=== PATIENT | female | born 1965 | race Caucasian/White ===

== ENCOUNTER → 2016-11-28 | Outpatient (CLI) | payer BC ==
--- NOTE | 2016-11-29 07:50 | MM ---
Reason for exam: history of breast cancer, conservation therapy. Last mammogram was performed 1 year ago. History: Patient is postmenopausal, has history of high-risk lesion on a previous biopsy at age 50, history of breast cancer, history of endometrial cancer, and history of colon cancer. Family history of breast cancer in paternal grandmother at age 65 and breast cancer in maternal grandmother at age 65. High risk MG pre op needle loc RT of the right breast, December 28, 2015. High risk MG stereo VAD BX RT of the right breast, December 07, 2015. Benign US left guided mammotome of the left breast, September 13, 2005. Took hormonal contraceptives for 8 years 2 months beginning at age 28. Physical Findings: Nurse Summary: 1 x 1cm nodule in the right breast along scar at 9 o'clock (nurse ts). MG 3D Diag Mammo W/Cad MARÍA ELENA Bilateral CC and MLO view(s) were taken. Prior study comparison: November 20, 2015, bilateral MG 3d screening mammo w/cad. October 20, 2014, bilateral MG screening mammo w CAD. The breast tissue is heterogeneously dense. This may lower the sensitivity of mammography. No suspicious calcifications are seen. Post operative scarring bilaterally. These results were verbally communicated with the patient and result sheet given to the patient on 11/28/16. ASSESSMENT: Incomplete: need additional imaging evaluation, BI-RAD 0 RECOMMENDATION: Ultrasound of the right breast.
--- NOTE | 2016-11-29 07:53 | USB ---
Reason for exam: additional evaluation requested from abnormal screening. History: Patient is postmenopausal, has history of high-risk lesion on a previous biopsy at age 50, history of breast cancer, history of endometrial cancer, and history of colon cancer. Family history of breast cancer in paternal grandmother at age 65 and breast cancer in maternal grandmother at age 65. High risk MG pre op needle loc RT of the right breast, December 28, 2015. High risk MG stereo VAD BX RT of the right breast, December 07, 2015. Benign US left guided mammotome of the left breast, September 13, 2005. Took hormonal contraceptives for 8 years 2 months beginning at age 28. US Breast Limited RT Right breast ultrasound demonstrates a 0.6 x 0.7 x 0.5cm oval, cystic lesion at 12 o'clock and a 0.9 x 0.8 x 0.6cm oval, mixed lesion at the axilla, probable sebaceous cyst. These results were verbally communicated with the patient and result sheet given to the patient on 11/28/16. ASSESSMENT: Probably benign, BI-RAD 3 RECOMMENDATION: Ultrasound of the right breast in 6 months. Manage patient on a clinical basis.
== END ==
LOC: RADMAMWWP 14:01
PROVIDERS: ATTEND Family Medicine
DX: R92.8 Other abnormal and inconclusive findings on diagnostic imaging of breast (principal); N63 Unspecified lump in breast
CPT/HCPCS: 76642; G0204; G0279

== ENCOUNTER → 2017-01-17 | Outpatient (CLI) | payer BC ==
--- NOTE | 2017-01-17 14:42 | XR ---
EXAMINATION TYPE: XR cervical spine comp DATE OF EXAM: 01/17/2017 2:38 PM COMPARISON: NONE HISTORY: Neck pain TECHNIQUE: Four views are submitted. FINDINGS: The odontoid is intact. There are no compression deformities. The prevertebral soft tissue structur es are within normal limits. Minimal anterolisthesis C4 on C5 with mild degenerative disc disease C5 -C6. IMPRESSION: 1. Mild degenerative disc disease C5-C6..
--- NOTE | 2017-01-17 14:43 | XR ---
EXAM TYPE: LUMBAR SPINE X RAY SERIES COMPARISON: NONE HISTORY: Pain TECHNIQUE: Three views are submitted. FINDINGS: Alignment is anatomic. The pedicles are intact. The transverse processes are intact. There is no s pondylolysis or spondylolisthesis. Severe degenerative disc disease with facet arthropathy L5-S1. IMPRESSION: 1. Severe degenerative disc disease L5-S1 with facet arthropathy.
== END | disposition home or self-care (01) ==
LOC: RADXRMAIN 14:09
PROVIDERS: ATTEND Emergency Medicine
DX: M50.322 Other cervical disc degeneration at C5-C6 level (principal); M51.37 Other intervertebral disc degeneration, lumbosacral region; M12.88 Other specific arthropathies, not elsewhere classified, other specified site
CPT/HCPCS: 72050; 72100

== ENCOUNTER → 2017-09-26 | Outpatient (CLI) | payer BC ==
--- NOTE | 2017-09-27 07:38 | MM ---
Reason for exam: additional evaluation requested from prior study. Last mammogram was performed 10 months ago. History: Patient is postmenopausal and has history of high-risk lesion on a previous biopsy at age 50. Family history of breast cancer in paternal grandmother at age 65 and breast cancer in maternal grandmother at age 65. High risk MG pre op needle loc RT of the right breast, December 28, 2015. High risk MG stereo VAD BX RT of the right breast, December 07, 2015. Benign US left guided mammotome of the left breast, September 13, 2005. Took hormonal contraceptives for 8 years 2 months beginning at age 28. Physical Findings: Nurse Summary: There is a 0.5 cm nodule in the left breast at 5 o'clock and a 2cm nodule in the left breast at 2 o'clock (nurse dw). MG Diagnostic Mammo LT w CAD CC and MLO view(s) were taken of the left breast. Prior study comparison: November 28, 2016, bilateral MG 3d diag mammo w/cad MARÍA ELENA. November 28, 2016, right breast US breast limited RT. December 02, 2015, right breast US breast workup limited RT. There are scattered fibroglandular densities. There is a marked architectural distortion in the upper outer quadrant of the left breast at the site of prior biopsy at middle depth in association with a focal asymmetry. Although this is stable in comparison to priors, this corresponds to an irregular mass on ultrasound. Precautionary biopsy is recommended. These results were verbally communicated with the patient and result sheet given to the patient on 09/26/17. ASSESSMENT: Suspicious, BI-RAD 4 RECOMMENDATION: Ultrasound core biopsy of the left breast. (Patient will be due for right mammogram November 2017). Called Dr. Parks with mammographic findings and has scheduled an appointment for the patient for 10/05/17 at 1:[address] Nascimento. PRELIMINARY REPORT CALLED AND FAXED TO DR. NASCIMENTO ON 09/26/17.
--- NOTE | 2017-09-27 07:47 | USB ---
Reason for exam: follow-up at short interval from prior study. History: Patient is postmenopausal and has history of high-risk lesion on a previous biopsy at age 50. Family history of breast cancer in paternal grandmother at age 65 and breast cancer in maternal grandmother at age 65. High risk MG pre op needle loc RT of the right breast, December 28, 2015. High risk MG stereo VAD BX RT of the right breast, December 07, 2015. Benign US left guided mammotome of the left breast, September 13, 2005. Took hormonal contraceptives for 8 years 2 months beginning at age 28. US Breast BILAT Right breast ultrasound includes all four quadrants, the retroareolar region and axilla. Finding demonstrates a 0.6 x 0.5 x 0.8cm oval, cystic lesion at 1 o'clock, benign. Left breast ultrasound includes all four quadrants, the retroareolar region and axilla. Finding demonstrates a 0.9 x 0.7 x 1.1 cm irregular, spiculated, solid, hypoechoic lesion at 1 o'clock, at the site of palpable abnormality, although this appears mammographically stable there is significant distortion on mammogram and a hypoechoic shadowing irregular mass on ultrasound, for which a biopsy is recommended. These results were verbally communicated with the patient and result sheet given to the patient on 09/26/17. ASSESSMENT: Suspicious, BI-RAD 4 RECOMMENDATION: Ultrasound core biopsy of the left breast. (at 2 o[address]). [address] Parks with mammographic findings and has scheduled an appointment for the patient for 10/05/17 at 1:[address] Nascimento. PRELIMINARY REPORT CALLED AND FAXED TO DR. NASCIMENTO ON 09/26/17.
== END | disposition home or self-care (01) ==
LOC: RADMAMWWP 14:06
PROVIDERS: ATTEND Family Medicine
DX: N64.4 Mastodynia (principal); N63.10 Unspecified lump in the right breast, unspecified quadrant
CPT/HCPCS: 77065

== ENCOUNTER → 2017-10-12 | Day surgery (SDC) | payer BC ==
[2017-10-12 12:20] VITALS: RESP 16; BMI 31.4
[2017-10-12 13:57] VITALS: BP 124/81; PULSE 72; TEMP 97.7
--- NOTE | 2017-10-12 14:19 | USB ---
EXAMINATION TYPE: US biopsy breast VAD LT, MG diagnostic mammo LT wo CAD DATE OF EXAM: 10/12/2017 CLINICAL HISTORY: 52-year-old female R92.8 ABN MAMMO. TECHNIQUE: Ultrasound guided core biopsy of the 1:00 left breast. COMPARISON: 09/26/2017 FINDINGS: The procedure of ultrasound guided core biopsy was explained to the patient. Benefits, alternatives, and risks were discussed. An informed consent was then obtained. The patient was placed in supine positioning for imaging and for the procedure. The overlying skin was prepped and draped in usual sterile fashion. Lidocaine buffered with bicarbonate was used as anesthetic into the skin and subcutaneous tissue up to area of concern in the 1:00 left breast. Under ultrasound guidance, a 13-gauge vacuum-assisted mammotome Elite biopsy gun device was used to obtain 6 core samples. Following this, a coil clip was left in lesion. The patient tolerated the procedure well without any immediate complication. The patient was kept in the radiology department for short stay after the procedure and then discharged home in stable condition. Postprocedure mammogram shows coil clip in place at the area of spiculation adjacent to the prior microclip. IMPRESSION: Successful, uncomplicated ultrasound guided core biopsy of area of concern in the left breast. The etiology is unclear at this time; despite suspicious features on both mammogram and ultrasound, this seems to have remained relatively stable mammographically with a prior clip in this location. Full pathology results to follow. Pathology Results: High Risk BREAST, LEFT, ULTRASOUND GUIDED CORE BIOPSY: SCLEROSING INTRADUCTAL PAPILLOMA. Recommendation Surgical consult of the left breast. LIZBETH
== END ==
LOC: RADUSWWP 11:49
PROVIDERS: ATTEND Surgery
DX: D24.2 Benign neoplasm of left breast (principal)
CPT/HCPCS: 88305; 88342; 88341; 77065; 19083; A4648; J2001

== ENCOUNTER 2017-12-14 06:43 | Day surgery (SDC) | payer BC ==
[2017-12-11 14:35] VITALS: BMI 31.1
[~2017-12-14 06:43] MED LIST: ALPRAZolam 0.5 MG TAB PO PRN; DEXAMETHASONE SOD PHOSPHATE 10 MG/ML 1 ML VIAL IV ONE; LACTATED RINGERS 1,000 ML IV SCH; LIDOCAINE 1% 20 ML VIAL (10MG/ML) FOR IV START INTRADERMA PRN; ONDANSETRON 4 MG/2 ML VIAL IVP ONE; Pre Op ABX Message 1 EACH MISC MISCELLANE ONE; SCOPOLAMINE 1.5MG/72HR PATCH TRANSDERM ONE; fentaNYL (PF) 50 MCG/ML 2 ML AMP IV PRN
[2017-12-14] MEDS ORDERED: SODIUM BICARB 4% 5 ML VIAL (0.48 MEQ/ML) MISCELLANE ONE (08:37)
[2017-12-14] MEDS ORDERED: LIDOCAINE 1% INJ 10MG/ML (20 ML MDV) SQ ONE (08:37)
[2017-12-14] MEDS ORDERED: BUPIVACAINE (PF) 0.25% 30 ML VIAL SQ ONE ×2 (09:53)
[2017-12-14] MEDS ORDERED: PROPOFOL 10 MG/ML 20 ML VIAL IV ONE (10:07)
[2017-12-14] MEDS ORDERED: fentaNYL (PF) 50 MCG/ML 2 ML AMP ONE (10:07)
[2017-12-14] MEDS ORDERED: MIDAZOLAM 2 MG/2 ML VIAL ONE (10:07)
[2017-12-14] MEDS ORDERED: LIDOCAINE 1% INJ 10MG/ML (20 ML MDV) ONE (10:07)
[2017-12-14] MEDS ORDERED: LACTATED RINGERS 1,000 ML IV ONE (11:08)
--- NOTE | 2017-12-14 11:26 | P.OP ---
Date of Procedure: 12/14/17 Preoperative Diagnosis: Intraductal papilloma left breast upper outer quadrant Lipoma left lateral chest wall Postoperative Diagnosis: Intraductal papilloma of the upper outer quadrant of the left breast and lipoma 4.5 cm of the left lateral chest wall Procedure(s) Performed: Left breast biopsy with needle localization and excision of lipoma left lateral chest wall Anesthesia: anibal NGUYEN Surgeon: Gary Nascimento Estimated Blood Loss (ml): 20 Pathology: other (Left breast biopsy and lipoma of the left lateral chest wall) Condition: stable Disposition: same day Indications for Procedure: The patient is a 52-year-old white female who had a core biopsy of the left breast mammographic abnormality. The path report revealed this to be intraductal papilloma. Wide excision of this was recommended with needle localization and also excision of a symptomatic lipoma on the left lateral chest wall about 4.5-5 cm in diameter. Informed consent was obtained procedure is having been explained to her including potential complication particular bleeding infection hematoma seroma surrounding the fascia understood and agree to proceed. Operative Findings: Intraductal papilloma the left breast and lipoma of the left lateral chest wall Description of Procedure: With the patient supine under general anesthesia with LMA the left breast and chest wall were prepped with Betadine and draped per. Marcaine 0.5% plain was infiltrated into the skin and surrounding tissues at the wire insertion site in the upper outer quadrant and deepened through the subcutaneous tissues. The excess to the breast tissue around the wire was accomplished. Specimen mammography confirmed a clip and abnormality within the specimen. The wound was thoroughly irrigated. Hemostasis was good and the field was dry. Closure was achieved with interrupted 4-0 Vicryl for the subcutaneous tissues and 4-0 Monocryl subcuticular sutures and Steri-Strips for the skin pressure dressing was applied. Attention was then turned to the lipoma with the area was reprepped and draped. Local anesthetic was infiltrated into the overlying skin and subcutaneous tissue. A transverse incision was then made. The lipoma was located just beneath the subcutaneous tissues and was excised completely intact with good hemostasis. The wound was irrigated. Closure was achieved with interrupted 4- 0 Vicryl for the subcutaneous tissues and 4-0 Monocryl subcuticular suture and Steri-Strips for the skin pressure dressing was applied. The patient remained stable and was transferred to the recovery room in good and stable condition. Plan - Discharge Summary Discharge Rx Participant: Yes New Discharge Prescriptions: No Action Mometasone/Formoterol [Dulera 200 Mcg/5 Mcg Inhaler] 2 puff INHALATION BID Levothyroxine Sodium [Synthroid] 50 mcg PO QAM Fluticasone Nasal [place] [Flonase Nasal [place]] 2 spr EA NOSTRIL BID Montelukast Sodium [Singulair] 10 mg PO HS Cetirizine HCl [Zyrtec] 10 mg PO HS Travoprost [Travatan Z 0.004%] 1 drop LEFT EYE HS Albuterol Nebulized [Ventolin Nebulized] 2.5 mg INHALATION DAILY PRN PRN Reason: Shortness Of Breath Aspirin [Adult Low Dose Aspirin EC] 81 mg PO DAILY Multivitamin,Therapeutic [Thera] 1 each PO DAILY Discharge Medication List Albuterol Nebulized [Ventolin Nebulized] 2.5 mg INHALATION DAILY PRN 12/25/15 [ History] Cetirizine HCl [Zyrtec] 10 mg PO HS 12/25/15 [History] Fluticasone Nasal [place] [Flonase Nasal [place]] 2 spr EA NOSTRIL BID 12/25/15 [ History] Levothyroxine Sodium [Synthroid] 50 mcg PO QAM 12/25/15 [History] Mometasone/Formoterol [Dulera 200 Mcg/5 Mcg Inhaler] 2 puff INHALATION BID 12/24 [History] Montelukast Sodium [Singulair] 10 mg PO HS 12/25/15 [History] Travoprost [Travatan Z 0.004%] 1 drop LEFT EYE HS 12/25/15 [History] Aspirin [Adult Low Dose Aspirin EC] 81 mg PO DAILY 10/09/17 [History] Multivitamin,Therapeutic [Thera] 1 each PO DAILY 10/09/17 [History] Follow up Appointment(s)/Referral(s): Gary Nascimento MD [STAFF PHYSICIAN] - 1 Week Patient Instructions/Handouts: *[facility] ([facility]) Breast Biopsy Instructions
--- NOTE | 2017-12-14 11:31 | P.DS ---
Providers Attending physician: Gary Nascimento Primary care physician: Stated None Plan - Discharge Summary Discharge Rx Participant: Yes New Discharge Prescriptions: New Hydrocodone/Acetaminophen [Caliente 5-325] 1 each PO Q4HR PRN #20 tab PRN Reason: Moderate Pain No Action Mometasone/Formoterol [Dulera 200 Mcg/5 Mcg Inhaler] 2 puff INHALATION BID Levothyroxine Sodium [Synthroid] 50 mcg PO QAM Fluticasone Nasal [place] [Flonase Nasal [place]] 2 spr EA NOSTRIL BID Montelukast Sodium [Singulair] 10 mg PO HS Cetirizine HCl [Zyrtec] 10 mg PO HS Travoprost [Travatan Z 0.004%] 1 drop LEFT EYE HS Albuterol Nebulized [Ventolin Nebulized] 2.5 mg INHALATION DAILY PRN PRN Reason: Shortness Of Breath Aspirin [Adult Low Dose Aspirin EC] 81 mg PO DAILY Multivitamin,Therapeutic [Thera] 1 each PO DAILY Discharge Medication List Albuterol Nebulized [Ventolin Nebulized] 2.5 mg INHALATION DAILY PRN 12/25/15 [ History] Cetirizine HCl [Zyrtec] 10 mg PO HS 12/25/15 [History] Fluticasone Nasal [place] [Flonase Nasal [place]] 2 spr EA NOSTRIL BID 12/25/15 [ History] Levothyroxine Sodium [Synthroid] 50 mcg PO QAM 12/25/15 [History] Mometasone/Formoterol [Dulera 200 Mcg/5 Mcg Inhaler] 2 puff INHALATION BID 12/24 [History] Montelukast Sodium [Singulair] 10 mg PO HS 12/25/15 [History] Travoprost [Travatan Z 0.004%] 1 drop LEFT EYE HS 12/25/15 [History] Aspirin [Adult Low Dose Aspirin EC] 81 mg PO DAILY 10/09/17 [History] Multivitamin,Therapeutic [Thera] 1 each PO DAILY 10/09/17 [History] Hydrocodone/Acetaminophen [Caliente 5-325] 1 each PO Q4HR PRN #20 tab 12/14/17 [Rx] Follow up Appointment(s)/Referral(s): Gary Nascimento MD [STAFF PHYSICIAN] - 1 Week Patient Instructions/Handouts: *[facility] - ([facility]) Breast Biopsy Instructions
[2017-12-14 11:37] VITALS: TEMP 97.8
[2017-12-14] MEDS ORDERED: HYDROcodone/APAP 5-325MG 1 EACH TAB PO ONE (12:44)
[2017-12-14 12:59] VITALS: RESP 18
[2017-12-14 13:29] VITALS: BP 124/75; PULSE 76
--- NOTE | 2017-12-14 15:56 | MM ---
EXAMINATION TYPE: MG surgical specimen LT DATE OF EXAM: 12/14/2017 10:45 AM COMPARISON: 10/12/2017 HISTORY: Papilloma and recent stereotactic core biopsy. Informed consent was obtained and all the patient's questions were answered. The left in question wa s localized mammographically. The standard sterile technique was utilized, as well as appropriate l ocal anesthesia with 1% Lidocaine and bicarbonate. Localization needle followed by placement of a gu idewire was performed under mammographic guidance. Verification images demonstrate appropriate deploy ment of the guidewire. The patient tolerated the procedure well and left the department in stable co ndition. Specimen radiograph demonstrates the clip in question to reside within the specimen. IMPRESSION: Successful needle localization and open biopsy left breast with pathology results pending .
== END 2017-12-14 13:46 | disposition home or self-care (01) ==
LOC: OR 06:43
PROVIDERS: ATTEND Surgery
DX: D24.2 Benign neoplasm of left breast (principal); D17.79 Benign lipomatous neoplasm of other sites; J45.909 Unspecified asthma, uncomplicated; H40.9 Unspecified glaucoma; R01.1 Cardiac murmur, unspecified; E03.9 Hypothyroidism, unspecified; Z79.82 Long term (current) use of aspirin; Z79.890 Hormone replacement therapy; Z79.51 Long term (current) use of inhaled steroids; Z79.899 Other long term (current) drug therapy; Z88.1 Allergy status to other antibiotic agents; Z91.040 Latex allergy status; Z91.048 Other nonmedicinal substance allergy status
CPT/HCPCS: 76098; 19281; 19125; 21552; J2250; J1100; J2405; J2001; J3010; J2704; 88304; 88307; 88341; 88342

== ENCOUNTER → 2018-09-11 | Outpatient (CLI) | payer BC ==
--- NOTE | 2018-09-11 09:27 | CT ---
EXAMINATION TYPE: CT sinus wo con DATE OF EXAM: 09/11/2018 COMPARISON: None HISTORY: 53-year-old female with pain, chronic sinusitis CT DLP: 596.5 mGycm Automated exposure control for dose reduction was used. TECHNIQUE: Noncontrast axial views of the paranasal sinuses were obtained. Coronal reconstructions pe rformed. FINDINGS: PARANASAL SINUSES: There is complete or near complete opacification of the right frontal, bilateral ethmoid, left spheno id, and right maxillary sinuses. Moderate opacification of the left maxillary sinus with a large 2.5 cm polyp or mucosal retention cys t. Moderate mucosal thickening left frontal sinus with layering fluid. Some frothy opacification in t he right sphenoid and right maxillary sinuses. Reactive carlos- osteogenesis is not seen. There is no destruction of the osseous desir of the paranasal sinuses. THE NASAL CAVITY: The osteomeatal complexes are opacified. Some of the lobulated opacification extends into the upper t o mid nasal cavity. There is rightward nasal septal deviation. The imaged brain and orbits are normal in appearance. Mastoid air cells and middle ear cavities are well pneumatized. Reformatted images confirm above findings. IMPRESSION: Findings suggest fairly severe acute on chronic rhinosinusitis with sinonasal polyposis. Rightward na scotty septal deviation.
== END | disposition home or self-care (01) ==
LOC: RADCTMAIN 08:38
PROVIDERS: ATTEND Otolaryngology
DX: J34.2 Deviated nasal septum (principal)
CPT/HCPCS: 70486

== ENCOUNTER 2018-12-19 08:31 | Day surgery (SDC) | payer BC ==
[2018-12-13 13:25] VITALS: BMI 31.6
[~2018-12-19 08:31] MED LIST changes: -ALPRAZolam 0.5 MG TAB PO PRN; +DEXAMETHASONE SOD PHOSPHATE 4 MG/ML 1 ML VIAL IV ONE; +FAMOTIDINE 20 MG/2 ML VIAL IV ONE; -Pre Op ABX Message 1 EACH MISC MISCELLANE ONE; +ceFAZolin IN SWFI 2 GM/20 ML SYRINGE IVP ONE; -fentaNYL (PF) 50 MCG/ML 2 ML AMP IV PRN
[2018-12-19] MEDS: OXYMETAZOLINE 0.05% NASL SPRAY 1 SPRAY BOTTLE NASAL ONE ×5 (09:33→09:57)
[2018-12-19] MEDS ORDERED: HYDROCORTISONE SUCCINATE 100 MG/2 ML VIAL IVP ONE (09:53)
[2018-12-19 09:56] LABS: Glucose,Whole Blood 85 mg/dL (75-99)
[2018-12-19] MEDS ORDERED: LIDOCAINE 1% INJ 10MG/ML (20 ML MDV) ONE (11:00)
[2018-12-19] MEDS ORDERED: fentaNYL (PF) 50 MCG/ML 2 ML AMP ONE (11:00)
[2018-12-19] MEDS ORDERED: SUCCINYLCHOLINE CHLORIDE 100 MG/5 ML SYR IV ONE (11:00)
[2018-12-19] MEDS ORDERED: DEXAMETHASONE SOD PHOS (MDV) 100 MG/10 ML VIAL ONE (11:00)
[2018-12-19] MEDS ORDERED: MIDAZOLAM 2 MG/2 ML VIAL ONE (11:00)
[2018-12-19] MEDS ORDERED: PROPOFOL 10 MG/ML 20 ML VIAL IV ONE (11:00)
[2018-12-19] MEDS ORDERED: LIDOCAINE 1%-EPI 1:100,000 20 ML VIAL SUBMUCOSAL ONE ×2 (11:13)
--- NOTE | 2018-12-19 12:31 | P.OP ---
Date of Procedure: 12/19/18 Preoperative Diagnosis: Deviated nasal septum Inferior turbinate hypertrophy Chronic sinusitis Sinonasal polyposis Postoperative Diagnosis: Same Procedure(s) Performed: Septoplasty Outfracture and submucous resection inferior turbinates Bilateral endoscopic sinus surgery with polypectomy's including bilateral maxillary antrostomy with removal of tissue from the maxillary sinuses, bilateral anterior and posterior ethmoidectomy, bilateral sphenoidotomy and frontal sinusotomy including balloon sinus plasty Anesthesia: WENDY Surgeon: Micheal Stokes Estimated Blood Loss (ml): 15 Pathology: other (Nasal septal bone and cartilage and sinus contents) Condition: stable Disposition: PACU Indications for Procedure: This is a 53-year-old white female who has chronic nasal airway obstruction congestion and facial pain and pressure recurrent sinusitis and anosmia. She has notable deviated septum, inferior turbinate hypertrophy and sinonasal polyps including on physical exam and computed tomography scan Operative Findings: Deviated nasal septum noted as well as inferior turbinate hypertrophy. Maxillary ostia were obstructed bilaterally with polyps within the maxillary sinuses and a large cyst in the right maxillary sinus. There are small polyps throughout the ethmoid sinuses as well as in the middle meatus bilateral. The frontal and sphenoid sinuses have mild mucosal thickening Description of Procedure: The patient was brought in the operative suite and placed in a supine position. The patient underwent induction of general anesthesia with oral endotracheal intubation without difficulty. The patient was prepped and draped in usual aseptic fashion. Orbits were in the operating field for monitoring throughout the case and computed tomography scan was on the computer screen for review throughout the case also. 1% lidocaine with 1-100,000 epinephrine was infused submucosally both sides nasal septum as well as lateral nasal wall anterior tips of middle turbinates and polyps themselves. While this was taking vasoconstrictive effect the inferior turbinates were infractured with [place] elevator partial submucous resection inferior turbinates performed with Coblation wand of this ablating a portion submucosal soft tissue and then outfractured with the [place] elevator. A left hemitransfixion incision was then made with the mucoperichondrial mucoperiosteal flap on the left elevated. Bony cartilaginous junction was disarticulated and the mucoperiosteal flap on the right was elevated. Bony nasal septal deformities were removed Estephania forceps. An inferior cartilaginous strip was removed leaving a full 1.5 cm caudal strut. Checking intranasally this corrected nasoseptal deformities and the hemitransfixion incision was closed with a running 4-0 chromic suture. Surgery endoscopic examination is performed bilaterally. Beginning on the left the polyps were debrided from medial aspect of the middle turbinate staying below the level of the superior turbinate. The middle turbinate was then medi alized with the [place] elevator. Polyps were debrided with microdebrider. Maxillary ostia was located with a ballpoint probe and infundibulotomy was followed by uncinectomy. The maxillary ostium was enlarged at the expense of the anterior and posterior fontanelle taking care anteriorly not to injure the lacrimal bone. Sinus was evaluated with a 30 and 70 endoscope with polyps removed with a curved suction and giraffe forceps. Anterior and posterior ethmoidectomy then performed from anterior posterior level skull base with the anterior ethmoid air cells also cleaned from posterior to anterior. The entellus balloon sinus plasty device was then used to perform frontal sinusotomy and sphenoidotomy light guided system and visual recognition of the ostia. The sinuses were then explored with 30 endoscope performed sinus anterior endoscopic examination sphenoid sinus. Attention was then turned to the right where the left including gross polypectomy medialization middle turbinate infundibulotomy uncinectomy ostomy with removal of tissue from exercise sinuses including a large cyst as well as polyps anterior posterior ethmoidectomy and frontal and sphenoid ostomy as they were on the left with exploration. Once this completed a common patient of standard and firm nasal pore nasal dressings were placed under direct visualization. The bilateral Silva airway splints were placed and sutured trans-septally with a 4-0 Vicryl suture. The patient was suctioned in oral gastric fashion. The patient allowed to emerge from general anesthesia having tolerated procedure well was extubated in the operating suite and transferred to the postop recovery area in satisfactory.
[2018-12-19 12:40] VITALS: TEMP 97.5
[2018-12-19 13:18] VITALS: RESP 16
[2018-12-19] MEDS ORDERED: OXYMETAZOLINE 0.05% NASL SPRAY 1 SPRAY BOTTLE NASAL ONE (13:30)
[2018-12-19] MEDS: HYDROmorphone 0.5 MG/0.5 ML SYRINGE IVP PRN ×2 (13:32→13:41)
[2018-12-19] MEDS ORDERED: LACTATED RINGERS 1,000 ML IV ONE ×2 (14:13)
[2018-12-19 15:20] VITALS: BP 129/78; PULSE 58
== END 2018-12-19 15:21 | disposition home or self-care (01) ==
LOC: OR 08:31
PROVIDERS: ATTEND Otolaryngology
DX: J34.2 Deviated nasal septum (principal); J34.3 Hypertrophy of nasal turbinates; J32.8 Other chronic sinusitis; J33.8 Other polyp of sinus; J45.909 Unspecified asthma, uncomplicated; E07.9 Disorder of thyroid, unspecified; Z79.2 Long term (current) use of antibiotics; Z79.82 Long term (current) use of aspirin; Z79.890 Hormone replacement therapy; Z79.51 Long term (current) use of inhaled steroids; Z79.52 Long term (current) use of systemic steroids; Z79.899 Other long term (current) drug therapy; Z88.1 Allergy status to other antibiotic agents; Z91.040 Latex allergy status; Z91.048 Other nonmedicinal substance allergy status
CPT/HCPCS: 30520; 30140; 31267; 31253; 31257; 31299; 88304; 88305; 88300; C1726; J2250; J1100 ×2; J1720; J2405; J2001; J3010; J0330; J2704; J1170; J0690

== ENCOUNTER → 2019-08-08 | Outpatient (CLI) | payer BC ==
--- NOTE | 2019-08-08 09:55 | MM ---
Reason for exam: additional evaluation requested from prior study. Last mammogram was performed 1 year and 10 months ago. History: Patient is postmenopausal and has history of high-risk lesion on a previous biopsy at age 52. Family history of breast cancer in paternal grandmother at age 65 and breast cancer in maternal grandmother at age 65. High risk MG pre op needle loc LT of the left breast, December 14, 2017. High risk US biopsy breast VAD LT of the left breast, October 12, 2017. High risk MG pre op needle loc RT of the right breast, December 28, 2015. High risk MG stereo VAD BX RT of the right breast, December 07, 2015. Benign US left guided mammotome of the left breast, September 13, 2005. Took hormonal contraceptives for 8 years 2 months beginning at age 28. Physical Findings: Nurse Summary: nodule in the right breast at 12 o'clock (nurse ms). MG 3D Diag Mammo W/Cad MARÍA ELENA Bilateral CC and MLO view(s) were taken. Prior study comparison: October 12, 2017, left breast MG diagnostic mammo LT wo CAD. September 26, 2017, left breast MG diagnostic mammo LT w CAD. The breast tissue is heterogeneously dense. This may lower the sensitivity of mammography. There is no discrete abnormality including area of concern. No significant new findings when compared with previous films. These results were verbally communicated with the patient and result sheet given to the patient on 08/08/19. ASSESSMENT: Benign, BI-RAD 2 RECOMMENDATION: Routine screening mammogram of both breasts in 1 year. Manage patient on a clinical basis.
== END | disposition home or self-care (01) ==
LOC: RADMAMWWP 08:45
PROVIDERS: ATTEND Obstetrics & Gynecology
DX: R92.8 Other abnormal and inconclusive findings on diagnostic imaging of breast (principal)
CPT/HCPCS: 77062; 77066

== ENCOUNTER → 2020-06-04 | Outpatient (CLI) | payer BC ==
--- NOTE | 2020-06-04 09:08 | MM ---
Reason for exam: additional evaluation requested from prior study. Last mammogram was performed 10 months ago. History: Patient is postmenopausal and has history of high-risk lesion on a previous biopsy at age 52. Family history of breast cancer in paternal grandmother at age 65 and breast cancer in maternal grandmother at age 65. High risk MG pre op needle loc LT of the left breast, December 14, 2017. High risk US biopsy breast VAD LT of the left breast, October 12, 2017. High risk MG pre op needle loc RT of the right breast, December 28, 2015. High risk MG stereo VAD BX RT of the right breast, December 07, 2015. Benign US left guided mammotome of the left breast, September 13, 2005. Took hormonal contraceptives for 8 years 2 months beginning at age 28. Physical Findings: Nurse Summary: 0.5cm nodule in the right breast at 12 o'clock (nurse dw). MG 3D Diag Mammo W/Cad [facility] Bilateral CC and MLO view(s) were taken. Prior study comparison: August 08, 2019, bilateral MG 3d diag mammo w/cad [facility]. October 12, 2017, left breast MG diagnostic mammo LT wo CAD. The breast tissue is heterogeneously dense. This may lower the sensitivity of mammography. Palpable consistent with small stable oil cyst. No significant new findings when compared with previous films. These results were verbally communicated with the patient and result sheet given to the patient on 06/04/20. ASSESSMENT: Incomplete: need additional imaging evaluation, BI-RAD 0 RECOMMENDATION: Ultrasound of both breasts.
--- NOTE | 2020-06-04 09:10 | USB ---
Reason for exam: additional evaluation requested from abnormal screening. History: Patient is postmenopausal and has history of high-risk lesion on a previous biopsy at age 52. Family history of breast cancer in paternal grandmother at age 65 and breast cancer in maternal grandmother at age 65. High risk MG pre op needle loc LT of the left breast, December 14, 2017. High risk US biopsy breast VAD LT of the left breast, October 12, 2017. High risk MG pre op needle loc RT of the right breast, December 28, 2015. High risk MG stereo VAD BX RT of the right breast, December 07, 2015. Benign US left guided mammotome of the left breast, September 13, 2005. Took hormonal contraceptives for 8 years 2 months beginning at age 28. US Breast BILAT Right complete breast ultrasound includes all four quadrants, the retroareolar region and axilla. Finding demonstrates a 5 x 5 x 7mm oval, cystic lesion at 1 o'clock BB. Left complete breast ultrasound includes all four quadrants, the retroareolar region and axilla. Finding demonstrates no cystic or solid lesion seen. These results were verbally communicated with the patient and result sheet given to the patient on 06/04/20. ASSESSMENT: Benign, BI-RAD 2 RECOMMENDATION: Routine screening mammogram of both breasts in 1 year. Manage patient on a clinical basis.
== END | disposition home or self-care (01) ==
LOC: RADMAMWWP 06:58
PROVIDERS: ATTEND Nurse Practitioner Family
DX: N63.15 Unspecified lump in the right breast, overlapping quadrants (principal); N63.25 Unspecified lump in the left breast, overlapping quadrants; N64.4 Mastodynia
CPT/HCPCS: 77062; 77066

== ENCOUNTER → 2021-07-28 | Outpatient (CLI) | payer BC ==
--- NOTE | 2021-07-29 10:16 | US ---
EXAMINATION TYPE: US thyroid st tissue head/neck DATE OF EXAM: 07/28/2021 COMPARISON: NONE CLINICAL HISTORY: 56-year-old female E03.9 Hypothyroidism, unspecified. TECHNIQUE: Multiple sonographic images of the thyroid gland are obtained. FINDINGS: GLAND SIZE: Right Lobe: 4.0 x 1.4 x 1.5 cm Overall Parenchyma: heterogenous Left Lobe: 4.2 x 1.3 x 1.5 cm Overall Parenchyma: heterogeneous Isthmus Thickness: 0.3 cm NODULES RIGHT: # of nodules measured on right: 1 1. 0.7 X 0.6 x 0.3 cm, lower pole, , hypoechoic nodule, which is wider than tall, with lobulated or irregular margins, without echogenic foci. LEFT: # of nodules measured on left: 0 ISTHMUS: # of nodules measured in the isthmus: 1 1. 0.5 X 0.3 x 0.2 cm left-sided, hypoechoic nodule, which is wider than tall, with ill-defined mar gins, without echogenic foci. Bilateral neck scanned: lymph node seen superior to left thyroid = 2.0 x 1.2 x 0.6cm IMPRESSION: 1. Heterogeneous thyroid gland may reflect chronic hypothyroidism. 2. 2 solid nodules, one on the right measuring 7 mm and one in the left isthmus measuring 5 mm. 3. A borderline sized 1.2 cm short axis lymph node along the left side of the neck above the thyroid gland. This may be reactive/post inflammatory. 3 month follow-up ultrasound to ensure stability/resol ution.
--- NOTE | 2021-07-29 11:08 | US ---
EXAMINATION TYPE: US mass soft tissue abdomen/back DATE OF EXAM: 07/28/2021 COMPARISON: NONE CLINICAL HISTORY: 56-year-old female R07.81. Palpables lateral abdomen TECHNIQUE: Targeted ultrasound examination along the right lateral abdomen at the patient's palpable site. No soft tissue mass is seen right lateral abdomen. At left lateral posterior abdomen, a vague echogen ic oval area is noted measuring 0.9 x 0.4 x 0.7cm. Located in the subcutaneous adipose layer IMPRESSION: A vague 9 mm echogenic lesion in the subcutaneous adipose layer at the patient's palpable site, right posterolateral abdomen. A lipoma or area of fat necrosis are suspected. Clinical follow-up recommend ed to exclude any enlarging palpable lesion. Six-month follow-up ultrasound to reassess.
== END | disposition home or self-care (01) ==
LOC: RADUSWWP 15:08
PROVIDERS: ATTEND Family Medicine
DX: E04.2 Nontoxic multinodular goiter (principal); R22.2 Localized swelling, mass and lump, trunk
CPT/HCPCS: 76536

== ENCOUNTER → 2021-07-29 | Outpatient (CLI) | payer BC ==
--- NOTE | 2021-07-30 14:51 | MM ---
Reason for exam: screening (asymptomatic). Last mammogram was performed 1 year and 2 months ago. History: Patient is postmenopausal and has history of high-risk lesion on a previous biopsy at age 52. Family history of breast cancer in paternal grandmother at age 65 and breast cancer in maternal grandmother at age 65. High risk MG pre op needle loc LT of the left breast, December 14, 2017. High risk US biopsy breast VAD LT of the left breast, October 12, 2017. High risk MG pre op needle loc RT of the right breast, December 28, 2015. High risk MG stereo VAD BX RT of the right breast, December 07, 2015. Benign US left guided mammotome of the left breast, September 13, 2005. Took hormonal contraceptives for 8 years 2 months beginning at age 28. Physical Findings: A clinical breast exam by your physician is recommended on an annual basis and results should be correlated with mammographic findings. MG Screening Mammo w CAD Bilateral CC and MLO view(s) were taken. Prior study comparison: June 04, 2020, bilateral MG 3d diag mammo w/cad [facility]. August 08, 2019, bilateral MG 3d diag mammo w/cad [facility]. The breast tissue is heterogeneously dense. This may lower the sensitivity of mammography. Finding: There is a 7 mm equal density (isodense) mass in the upper inner quadrant of the left breast. ASSESSMENT: Incomplete: need additional imaging evaluation, BI-RAD 0 RECOMMENDATION: Special view mammogram of the left breast. If lesion persists on supplemental views, image directed ultrasound is recommended. [facility] will attempt to contact patient to return for supplemental views and ultrasound if indicated.
== END | disposition home or self-care (01) ==
LOC: RADMAMWWP 09:06
PROVIDERS: ATTEND Family Medicine
DX: Z12.31 Encounter for screening mammogram for malignant neoplasm of breast (principal); Z80.3 Family history of malignant neoplasm of breast; Z78.0 Asymptomatic menopausal state
CPT/HCPCS: 77067

== ENCOUNTER → 2021-08-06 | Outpatient (CLI) | payer BC ==
--- NOTE | 2021-08-06 12:25 | MM ---
Reason for exam: additional evaluation requested from abnormal screening. Last mammogram was performed less than 1 month ago. History: Patient is postmenopausal and has history of high-risk lesion on a previous biopsy at age 52. Family history of breast cancer in paternal grandmother at age 65 and breast cancer in maternal grandmother at age 65. High risk MG pre op needle loc LT of the left breast, December 14, 2017. High risk US biopsy breast VAD LT of the left breast, October 12, 2017. High risk MG pre op needle loc RT of the right breast, December 28, 2015. High risk MG stereo VAD BX RT of the right breast, December 07, 2015. Benign US left guided mammotome of the left breast, September 13, 2005. Took hormonal contraceptives for 8 years 2 months beginning at age 28. Physical Findings: Nurse did not find any significant physical abnormalities on exam. MG Work Up Mamm w CAD LT Spot compression CC, spot compression MLO, and ML view(s) were taken of the left breast. Prior study comparison: July 29, 2021, bilateral MG screening mammo w CAD. June 04, 2020, bilateral MG 3d diag mammo w/cad [facility]. There are scattered fibroglandular densities. Previous asymmetry is pliable and presumably benign tissue. These results were verbally communicated with the patient and result sheet given to the patient on 08/06/21. ASSESSMENT: Negative, BI-RAD 1 RECOMMENDATION: Return to routine screening mammogram schedule for both breasts.
== END | disposition home or self-care (01) ==
LOC: RADMAMWWP 10:02
PROVIDERS: ATTEND Family Medicine
DX: N64.89 Other specified disorders of breast (principal); Z80.3 Family history of malignant neoplasm of breast; Z78.0 Asymptomatic menopausal state
CPT/HCPCS: 77065

== ENCOUNTER → 2022-08-17 | Outpatient (CLI) | payer BC ==
--- NOTE | 2022-08-19 18:30 | MM ---
Reason for Exam: Screening (asymptomatic). Last screening mammogram was performed 12 month(s) ago. Indicated Problems: Pain of the left side (Focal) for 1 Week(s). Patient History: Menarche at age 12. First Full-Term at age 22. Postmenopausal. Hormonal Contraceptives, starting at age 28 for 8 years, 2 months. 12/14/2017, High risk Core Biopsy on the left side. 10/12/2017, High risk Core Biopsy on the left side. 12/28/2015, High risk Core Biopsy on the right side. 12/07/2015, High risk Core Biopsy on the right side. 09/13/2005, Benign Core Biopsy on the left side. Paternal grandmother had breast cancer, age 65. Maternal grandmother had breast cancer, age 65. Risk Values: Xiomara 5 year model risk: 1.7%. NCI Lifetime model risk: 10.4%. Prior Study Comparison: 06/04/2020 Bilateral Diagnostic Mammogram, [facility]. 07/29/2021 Bilateral Screening Mammogram, [facility]. 08/06/2021 Left Diagnostic Mammogram, [facility]. Tissue Density: There are scattered fibroglandular densities. Findings: Analyzed By CAD. A pain marker placed along the lower outer aspect of the left breast. No underlying discrete abnormality is seen. Chronic nodularity upper outer quadrant right breast. No significant change from prior exams. Overall Assessment: Benign, BI-RAD 2 Management: Screening Mammogram of both breasts in 1 year. 1. Clinical management of patient's left sided breast pain. 2. Patient should continue monthly self breast exams. 3. This exam should not preclude additional follow-up of suspicious palpable abnormalities. Electronically signed and approved by: John Price M.D. Radiologist
== END | disposition home or self-care (01) ==
LOC: RADMAMWWP 13:50
PROVIDERS: ATTEND Family Medicine
DX: Z12.31 Encounter for screening mammogram for malignant neoplasm of breast (principal); Z78.0 Asymptomatic menopausal state; Z80.3 Family history of malignant neoplasm of breast
CPT/HCPCS: 77063; 77067

== ENCOUNTER → 2024-01-03 | Outpatient (CLI) | payer BC ==
--- NOTE | 2024-01-03 13:45 | MM ---
Reason for Exam: Clinical finding. Last mammogram was performed 1 year(s) and 5 month(s) ago. Indicated Problems: Palpable abnormality of the right side for 2 Month(s). Patient History: Menarche at age 12. Patient has no children. Postmenopausal. Hormonal Contraceptives, starting at age 28 for 8 years, 2 months. 12/14/2017, High risk Core Biopsy on the left side. 10/12/2017, High risk Core Biopsy on the left side. 12/28/2015, High risk Core Biopsy on the right side. 12/07/2015, High risk Core Biopsy on the right side. 09/13/2005, Benign Core Biopsy on the left side. Paternal grandmother had breast cancer, age 65. Maternal grandmother had breast cancer, age 65. Risk Values: Xiomara 5 year model risk: 2.2%. NCI Lifetime model risk: 12.5%. Prior Study Comparison: 10/12/2017 Left Diagnostic Mammogram, [facility]. 08/08/2019 Bilateral Diagnostic Mammogram, [facility]. 06/04/2020 Bilateral Diagnostic Mammogram, [facility]. 07/29/2021 Bilateral Screening Mammogram, [facility]. 08/06/2021 Left Diagnostic Mammogram, [facility]. 08/17/2022 Bilateral MG 3D screening mammo w/cad, [facility]. Tissue Density: There are scattered areas of fibroglandular density. Findings: Analyzed By CAD. Palpable marker is at the site of prior excisional biopsy of the right 12:00 position. Ultrasound is recommended. No distinct mass is appreciated within either breast. No suspicious microcalcifications are identified. Overall Assessment: Incomplete: need additional imaging evaluation, BI-RAD 0 Management: Diagnostic Breast Ultrasound of the right breast. . Results were given to the patient verbally at the time of exam. Patient should continue monthly self-breast exams. A clinical breast exam by your physician is recommended on an annual basis. This exam should not preclude additional follow-up of suspicious palpable abnormalities. Note on Xiomara scores and lifetime risk: 1. A Xiomara score greater than 3% is considered moderate risk. If this is the case, consider specialist referral to assess eligibility for a risk reducing agent. 2. If overall lifetime risk for the development of breast cancer is 20% or higher, the patient may qualify for future screening with alternating mammogram and breast MRI. Electronically signed and approved by: Eris Lawton M.D. Radiologis
--- NOTE | 2024-01-03 14:35 | USB ---
Reason for Exam: Clinical finding. Patient History: Menarche at age 12. Patient has no children. Postmenopausal. Hormonal Contraceptives, starting at age 28 for 8 years, 2 months. 12/14/2017, High risk Core Biopsy on the left side. 10/12/2017, High risk Core Biopsy on the left side. 12/28/2015, High risk Core Biopsy on the right side. 12/07/2015, High risk Core Biopsy on the right side. 09/13/2005, Benign Core Biopsy on the left side. Paternal grandmother had breast cancer, age 65. Maternal grandmother had breast cancer, age 65. Risk Values: Xiomara 5 year model risk: 2.2%. NCI Lifetime model risk: 12.5%. Technique: Method: Targeted. Prior Study Comparison: 07/29/2021 Bilateral Screening Mammogram, [facility]. 08/06/2021 Left Diagnostic Mammogram, [facility]. 08/17/2022 Bilateral MG 3D screening mammo w/cad, [facility]. Findings: The area of palpable concern of the right breast, the axilla of the right breast and the retroareolar of the right breast were scanned. Subcutaneous well-circumscribed cystic lesion measuring 5 x 6 mm at the right 1:00 position 7 cm from the nipple corresponding to the site of clinical concern was present on prior study of 11/28/2016 and is considered benign in nature.. Overall Assessment: Benign, BI-RAD 2 Management: Diagnostic Mammogram of both breasts in 1 year. A clinical breast exam by your physician is recommended on an annual basis and results should be correlated with mammographic findings. This exam should not preclude additional follow-up of suspicious palpable abnormalities. Results were given to the patient verbally at the time of exam. Electronically signed and approved by: Eris Lawton M.D. Radiologis
== END | disposition home or self-care (01) ==
LOC: RADMAMWWP 13:01
PROVIDERS: ATTEND Family Medicine
DX: N63.12 Unspecified lump in the right breast, upper inner quadrant (principal); R92.323 Mammographic fibroglandular density, bilateral breasts; Z78.0 Asymptomatic menopausal state; Z80.3 Family history of malignant neoplasm of breast
CPT/HCPCS: 77062; 77066

== ENCOUNTER → 2024-06-27 | Outpatient (CLI) | payer BC ==
[2024-06-27 15:29] LABS: Basophils # (A) 0.13 X 10*3/uL (0.00-0.10); Basophils % (A) 1.6 %; Eosinophils # (A) 0.34 X 10*3/uL (0.04-0.35); Eosinophils % (A) 4.1 %; HCT 40.6 % (37.2-46.3); HGB 12.7 g/dL (12.0-15.0); Lymphocytes # (A) 2.36 X 10*3/uL (0.90-5.00); Lymphocytes % (A) 28.3 %; MCH 25.8 pg (27.0-32.0); MCHC 31.3 g/dL (32.0-37.0); MCV 82.4 FL (80.0-97.0); Mean Platelet Volume 10.2 FL (9.5-12.2); Monocytes # (A) 0.58 X 10*3/uL (0.20-1.00); NRBC Per 100 WBC 0 X 10*3/uL (0.00-0.01); Neutrophils % (A) 58.8 %; Platelet Count 319 X 10*3/uL (140-440); RBC 4.93 X 10*6/uL (4.10-5.20); RDW 13.4 % (11.5-14.5); WBC 8.33 X 10*3/uL (4.50-10.00)
[2024-06-27 18:14] LABS: ALT 29 U/L (8-44); AST 29 U/L (13-35); Albumin 4.4 g/dL (3.8-4.9); Albumin/Globulin Ratio 1.63 Ratio (1.60-3.17); Alkaline Phosphatase 81 U/L (41-126); BUN/Creat Ratio 18.78 Ratio (12.00-20.00); Blood Urea Nitrogen 16.9 mg/dL (9.0-27.0); Calcium 9.5 mg/dL (8.7-10.3); Carbon Dioxide 22.2 mmol/L (21.6-31.8); Chloride 105 mmol/L (96-109); Chol/HDL Ratio 3.92 Ratio; Globulin 2.7 g/dL (1.6-3.3); Glucose 108 mg/dL (70-110); LDL Cholesterol,Calculated 126.1 mg/dL (0.0-131.0); Potassium 4.3 mmol/L (3.5-5.5); Sodium 141 mmol/L (135-145); Total Bilirubin <0.2 mg/dL (0.3-1.2); Total Protein 7.1 g/dL (6.2-8.2)
== END | disposition home or self-care (01) ==
LOC: LABWHC1 09:35
PROVIDERS: ATTEND Family Medicine
DX: Z00.00 Encounter for general adult medical examination without abnormal findings (principal); E03.9 Hypothyroidism, unspecified
CPT/HCPCS: 36415; 80053; 80061; 84443; 85025

== ENCOUNTER → 2025-01-30 | Outpatient (CLI) | payer BC ==
--- NOTE | 2025-01-30 10:26 | MM ---
Reason for Exam: Screening (asymptomatic). Last mammogram was performed 1 year(s) and 1 month(s) ago. Patient History: Menarche at age 12. Patient has no children. Postmenopausal. Hormonal Contraceptives, starting at age 28 for 8 years, 2 months. 12/14/2017, High risk Core Biopsy on the left side. 10/12/2017, High risk Core Biopsy on the left side. 12/28/2015, High risk Core Biopsy on the right side. 12/07/2015, High risk Core Biopsy on the right side. 09/13/2005, Benign Core Biopsy on the left side. Paternal grandmother had breast cancer, age 65. Maternal grandmother had breast cancer, age 65. Risk Values: Xiomara 5 year model risk: 2.3%. NCI Lifetime model risk: 12.2%. Prior Study Comparison: 09/26/2017 Left Diagnostic Mammogram, [facility]. 10/12/2017 Left Diagnostic Mammogram, [facility]. 08/08/2019 Bilateral Diagnostic Mammogram, [facility]. 06/04/2020 Bilateral Diagnostic Mammogram, [facility]. 07/29/2021 Bilateral Screening Mammogram, [facility]. 08/06/2021 Left Diagnostic Mammogram, [facility]. 08/17/2022 Bilateral MG 3D screening mammo w/cad, [facility]. 01/03/2024 Bilateral MG 3D diag mammo w/cad [facility], [facility]. Tissue Density: There are scattered areas of fibroglandular density. Findings: Analyzed By CAD. Right breast: There is no suspicious group of microcalcifications or new suspicious mass. Left breast: There is no suspicious group of microcalcifications or new suspicious mass. Overall Assessment: Negative, BI-RAD 1 Management: Screening Mammogram of both breasts in [address] [facility] will attempt to contact patient to return for supplemental views and ultrasound if indicated. Patient should continue monthly self-breast exams. A clinical breast exam by your physician is recommended on an annual basis. This exam should not preclude additional follow-up of suspicious palpable abnormalities. Note on Xiomara scores and lifetime risk: 1. A Xiomara score greater than 3% is considered moderate risk. If this is the case, consider specialist referral to assess eligibility for a risk reducing agent. 2. If overall lifetime risk for the development of breast cancer is 20% or higher, the patient may qualify for future screening with alternating mammogram and breast MRI. [facility], , 01/30/2025 10:23 AM. Electronically signed and approved by: Jonatan Mireles DO
== END | disposition home or self-care (01) ==
LOC: RADMAMWWP 09:30
PROVIDERS: ATTEND Family Medicine
DX: Z12.31 Encounter for screening mammogram for malignant neoplasm of breast (principal); R92.323 Mammographic fibroglandular density, bilateral breasts; Z78.0 Asymptomatic menopausal state; Z80.3 Family history of malignant neoplasm of breast; Z92.0 Personal history of contraception
CPT/HCPCS: 77063; 77067